=== PATIENT | female | born 1995 | race Caucasian/White ===

== ENCOUNTER 2016-11-17 07:59 | Emergency (ER) | payer BC, OTHER ==
[~2016-11-17] VITALS: Ht 162.6 cm; Wt 76.0 kg
[2016-11-17 08:03] VITALS: TEMP 36.6; Ht 162.6 cm; Wt 76.0 kg
[2016-11-17] MEDS ORDERED: BCPILLS PO (08:28)
[2016-11-17] MEDS ORDERED: PHENAZOPYRIDINE HCL 200 MG TAB PO STA (08:47)
--- NOTE | 2016-11-17 08:55 | EMERGENCY ROOM VISIT NOTE ---
ED Visit Note First contact with patient: 08:06 CHIEF COMPLAINT: Frequent and painful urination for 7 days HISTORY OF PRESENT ILLNESS: This 21 year old woman has had increased frequency of urination, burning pain with urination, and a feeling of incomplete voiding. She passes very small volumes of urine with each episode of voiding. The patient does admit to some low back discomfort. She also has some left lower quadrant discomfort but denies any sharp pains, nausea or vomiting. The patient denies a history of kidney stones. REVIEW OF SYSTEMS: 6 system review was performed and was negative unless stated otherwise in history of present illness. PMH: The patient is healthy; there is no significant medical or surgical history. SOCIAL HISTORY: Patient lives at home. PHYSICAL EXAM: Vital Signs: Were reviewed Reviewed Nurse's notes. GEN.: 21-year -old white female appears in no acute distress. MENTAL Status: Alert and oriented 3. LUNGS: Clear to auscultation without wheezes rales or rhonchi. CARDIAC: Regular rate and rhythm without murmur. BACK: No CVA tenderness noted. ABDOMEN: Positive bowel sounds all 4 quadrants. Soft, mild tenderness palpation in the left lower quadrant otherwise on tender to palpation without organomegaly or masses. EMERGENCY DEPARTMENT COURSE: The patient was evaluated. Urine dip revealed leukocytes positive nitrates positive blood. The patient was given Macrobid 100 mg by mouth and Pyridium 200 mg by mouth. The patient was discharged home in stable condition. DIAGNOSIS: UTI - Cystitis DISCHARGE INSTRUCTIONS & TREATMENT: Push fluids. Tylenol and/or ibuprofen as needed for pain. Take Pyridium as prescribed. This will turn your urine orange do not be alarmed. Take Macrobid as prescribed. Call in 36 hours if you are not improved to check culture results, and the appropriateness of the antibiotic therapy. If symptoms worsen, return to ER. Current/Historical Medications Scheduled Control Pills ( Control Pills), 1 TAB PO DAILY Allergies Coded Allergies: No Known Drug Allergy (Verified Allergy, Unknown, ., 11/17/16) Penicillins (Unverified Allergy, Unknown, ., 11/17/16) Vital Signs Date Time Temp Pulse Resp B/P Pulse Ox O2 Delivery O2 Flow Rate FiO2 11/17/16 08:03 36.6 111 18 127/75 98 Room Air Laboratory Results Test 11/17/16 08:20 Departure Information Referrals Piedad Allen (PCP) Patient Instructions [facility]
[2016-11-17] MEDS ORDERED: PHEN-876 PO (08:57)
[2016-11-17] MEDS ORDERED: NITR-5 PO (08:57)
[2016-11-17 08:58] LABS: URINE APPEARANCE TURBID (CLEAR); URINE BILIRUBIN NEG (NEG); URINE COLOR YELLOW; URINE EPITHELIAL CELL AUTO >30 /lpf (0-5); URINE NITRITE POS (NEG); URINE PH 7.5 (4.5-7.5); URINE SPECIFIC GRAVITY 1.013 (1.000-1.030); UROBILINOGEN NEG (NEG); ZZUR CULT IF INDIC CLEAN CATCH YES
[2016-11-17 08:59] VITALS: BP 118/74; PULSE 109; O2SAT 97
[2016-11-17] MEDS ORDERED: NITROFURANTOIN MONOHYDRATE 100 MG CAP PO ONE (09:00)
[2016-11-17 09:12] LABS: MANUAL MICROSCOPIC REQUIRED? NO; REVIEW REQ? YES; SULFASALICYLIC ACID POS (NEG)
== END 2016-11-17 09:09 | disposition home or self-care (01) ==
LOC: C.EDB 08:00
DX: N30.90 Cystitis, unspecified without hematuria (principal); Z79.3 Long term (current) use of hormonal contraceptives